=== PATIENT | male | born 1965 | race Two or more races ===

== ENCOUNTER → 2017-04-28 | Outpatient (CLI) | payer OTHER | END | disposition home or self-care (01) | LOC: RT 10:21 | DX: Z91.89 Other specified personal risk factors, not elsewhere classified (principal); E66.01 Morbid (severe) obesity due to excess calories; G47.33 Obstructive sleep apnea (adult) (pediatric); Z68.43 Body mass index [BMI] 50.0-59.9, adult | CPT/HCPCS: G0399 ==